=== PATIENT | male | born 1990 | race Caucasian/White ===

== ENCOUNTER 2016-07-29 15:54 | Emergency (ER) | payer OTHER ==
[2016-07-29 16:15] VITALS: BP 135/74
--- NOTE | 2016-07-29 16:32 | ED Physician Documentation ---
PD HPI LOWER EXT INJURY - Stated complaint Stated Complaint: RT HAMSTRING INJ - Chief complaint Chief Complaint: Ext Problem - History obtained from History obtained from: Patient - History of Present Illness PD HPI LOW EXT INJURY LOCATION: Right (Healthy 26-year-old gentleman, active duty in the [employer]. He was doing running sprints today and felt a ball form in his right hamstring and is now able to walk only with difficulty. Denies weakness or numbness but does have some tingling near the knee. No other injuries.) Review of Systems Constitutional: reports: Reviewed and negative Cardiac: reports: Reviewed and negative Respiratory: reports: Reviewed and negative PD PAST MEDICAL HISTORY - Present Medications Home Medications: Ambulatory Orders Medication Instructions Recorded Confirmed No Known Home Medications [No 07/29/16 07/29/16 Known Home Medications] - Allergies Allergies/Adverse Reactions: Allergies Allergy/AdvReac Type Severity Reaction Status Date / Time No Known Drug Allergies Allergy Verified 07/29/16 16:09 PD ED PE NORMAL - Vitals Vital signs reviewed: Yes - General General: Alert and oriented X 3, No acute distress - Extremities Extremities: Other (Right hamstring is tender, but he is able to flex actively at the knee and he is neurovascularly intact throughout the lower extremity. No limited range of motion passively.) - Neuro Neuro: Alert and oriented X 3, Normal speech - Psych Psych: Normal mood, Normal affect Results - Vitals Vitals: Vital Signs - 24 hr 07/29/16 16:08 Temperature 36.4 C L Heart Rate 67 Respiratory 12 Rate Blood Pressure 135/74 H O2 Saturation 100 Oxygen O2 Source Room air Departure - Departure Disposition: 01 Home, Self Care Clinical Impression: Right hamstring muscle strain Qualifiers: Encounter type: initial encounter Qualified Code(s): S76.311A - Strain of muscle, fascia and tendon of the posterior muscle group at thigh level, right thigh, initial encounter Condition: Good Record reviewed to determine appropriate education?: Yes Instructions: ED Strain Muscle Ext Comments: Ibuprofen, 800 mg every 6-8 hours as needed for pain. Wear the splint as needed for pain control for the first couple of days only and then start gentle range of motion exercises and potentially light swimming as discussed. Your blood pressure was elevated today on check in to the emergency department. This does not mean that you have hypertension, it is a common phenomenon to check into the emergency department and have elevated blood pressure. I recommend that you see your primary care physician within the week to have it rechecked when you're feeling better. Forms: Activity restrictions
== END 2016-07-29 17:15 | disposition home or self-care (01) ==
LOC: ED 15:54
DX: S76.311A Strain of muscle, fascia and tendon of the posterior muscle group at thigh level, right thigh, initial encounter (principal); X50.9XXA Other and unspecified overexertion or strenuous movements or postures, initial encounter; Y93.02 Activity, running; Y99.1 Military activity
CPT/HCPCS: 99282; 99283

== ENCOUNTER 2023-01-22 10:55 | Outpatient (CLI) | payer OTHER ==
--- NOTE | 2023-01-22 13:52 | XRAY Report ---
PROCEDURE: Shoulder 3 View RT INDICATIONS: RIGHT SHOULDER PAIN TECHNIQUE: 3 views of the shoulder were acquired. COMPARISON: None. FINDINGS: Bones: No fractures or dislocations. No suspicious bony lesions. Visualized ribs appear intact. Soft tissues: No suspicious soft tissue calcifications. The visualized lungs are within normal limi ts. IMPRESSION: No acute bony abnormality. Reviewed by: Kwame Diallo MD on 01/22/2023 1:51 PM PST Approved by: Kwame Diallo MD on 01/22/2023 1:51 PM PST Station ID: [id number]
== END 2023-01-22 10:56 | disposition home or self-care (01) ==
LOC: LAB.N 10:55 → DI.N 10:56
PROVIDERS: ATTEND Physician Assistant Medical
DX: M25.511 Pain in right shoulder (principal)